=== PATIENT | female | born 1965 | race Caucasian/White ===

== ENCOUNTER → 2017-06-19 | Outpatient (CLI) | payer OTHER | END | disposition home or self-care (01) | LOC: KCIC MRI 15:15 | DX: M48.02 Spinal stenosis, cervical region (principal) | CPT/HCPCS: 72141 ==

== ENCOUNTER → 2018-03-12 | Outpatient (CLI) | payer OTHER ==
--- NOTE | 2018-03-12 09:55 | KCIC ---
MRI Lumbar Spine without contrast History: Low back pain, new bending injury, heard a pop 2 weeks ago Technique: Multiplanar, multi sequential noncontrast MR imaging was performed of the lumbar spine. Contrast: None Comparison: None Findings: Lumbar vertebral body stature is maintained. AP alignment is within normal limits. Conus terminates at L1-L2. There is no significant marrow edema. There is abnq-cs-oxhpprwr degenerative disc disease L5-S1 and minimally L4-5. There is a probable small more prominent vessel in the posterior central aspect of the thecal sac at the level of the sacrum. L3-L4: There is a negligible disc osteophyte complex and negligible posterior central protrusion without neural impingement or spinal stenosis. Neural foramina are adequate. There is mild facet degenerative change and buckling of the ligamentum flavum. L4-L5: There is a negligible posterior protrusion and tiny annular tear, no significant neural impingement or spinal stenosis. Neural foramina are adequate. L5-S1: There is very shallow posterior protrusion without significant impingement of the descending S1 nerve roots or spinal stenosis. Neural foramina are adequate. Impression: 1. There are negligible posterior protrusions at L3-4 to L5-S1 without significant neural impingement or spinal stenosis. There is ejez-da-hlebfbev degenerative disc disease L5-S1 and to a lesser degree at L4-5. Electronically signed by: Arden Lazcano MD (03/12/2018 9:52 AM) [facility]-KC[facility]2
== END | disposition home or self-care (01) ==
LOC: KCIC MRI 08:48
PROVIDERS: ATTEND Physician Assistant Medical
DX: M51.37 Other intervertebral disc degeneration, lumbosacral region (principal)
CPT/HCPCS: 72148

== ENCOUNTER → 2019-02-06 | Outpatient (CLI) | payer OTHER ==
--- NOTE | 2019-02-06 17:28 | KCIC ---
MRI Lumbar Spine without contrast History: Low back pain Technique: Multiplanar, multi sequential noncontrast MR imaging was performed of the lumbar spine. Comparison: March 12, 2018 Findings: Lumbar vertebral body stature is overall maintained. AP alignment is unchanged. There is bjqj-vu-ispwbzbq L5-S1 degenerative disc disease, minimally at L4-5. Conus terminates near L1-2. There is posterior annular tear L4-5. There is again what may represent a more prominent vessel in the posterior central aspect of the thecal sac at level of the sacrum. L2-3: Neural foramina and spinal canal are adequate. There is mild buckling of the ligamentum flavum. L3-L4: There is again very shallow posterior protrusion and disc osteophyte complex. Spinal canal and the neural foramina are adequate. There is minimal buckling of the ligamentum flavum and facet degenerative change. L4-L5: There is again negligible posterior protrusion. Spinal canal and neural foramina are overall adequate. L5-S1: There is again negligible disc osteophyte complex. Spinal canal is overall adequate. Neural foramina are adequate. Impression: 1. There is no new significant lumbar spinal stenosis or neural foramina compromise. There is asvx-cl-hgsoxsnv degenerative disc disease at L5-S1 and minimally at L4-5, very mild spondylosis. Electronically signed by: Arden Lazcano MD (02/06/2019 5:26 PM) [facility]-KC[facility]
== END | disposition home or self-care (01) ==
LOC: KCIC MRI 15:52
DX: M51.37 Other intervertebral disc degeneration, lumbosacral region (principal); M47.897 Other spondylosis, lumbosacral region; M25.78 Osteophyte, vertebrae
CPT/HCPCS: 72148

== ENCOUNTER 2020-06-01 20:03 | Emergency (ER) | payer OTHER ==
[~2020-06-01] VITALS: Ht 162.6 cm; Wt 81.0 kg
[2020-06-01 20:56] LABS: BASO # 0.1 x10^3/uL (0.0-0.2); BASO % 1 % (0-3); EOS # 0.2 x10^3/uL (0.0-0.7); EOS % 2 % (0-3); HEMATOCRIT 42.3 % (36.0-47.0); HEMOGLOBIN 14.4 g/dL (12.0-15.5); LYMPH # 1.9 x10^3/uL (1.0-4.8); LYMPH % 13 % (24-48); MEAN CORPUSCULAR HEMOGLOBIN 31 pg (25-35); MEAN CORPUSCULAR HGB CONC 34 g/dL (31-37); MEAN CORPUSCULAR VOLUME 90 fL (79-100); MONO # 1.8 x10^3/uL (0.0-1.1); MONO % 12 % (0-9); NEUT % 74 % (31-73); PLATELET COUNT 277 x10^3/uL (140-400); RED BLOOD COUNT 4.69 x10^6/uL (3.50-5.40); RED CELL DISTRIBUTION WIDTH 12.4 % (11.5-14.5); WHITE BLOOD COUNT 14.9 x10^3/uL (4.0-11.0)
--- NOTE | 2020-06-01 20:56 | PHYS DOC ---
General Adult EDM: Chief Complaint: ABDOMINAL PAIN HPI: HPI: 54 yo F PMH deafness, hyperhydrosis (resolved s/p endoscopic thoracic sympathetectomy), rheumatoid arthritis and gastric ulcer (1999), presents to the ED with complaints of epigastric abdominal pain that started yesterday morning around 5 AM that is also now localized in her right lower quadrant with associated fever and chills. Reports she had 2 episodes of runny bowel movements yesterday but had a normal brown bowel movement this morning. No relief with Tums but did feel relief with crackers 2 hours prior to ED arrival. Other with history of diverticulitis. Patient had a colonoscopy 4 years ago for routine screening that was negative. No known history of liver cirrhosis or daily alcohol use. No history of drug use. No history of active GI bleeding, has never required any blood transfusions. Use to take celecoxib daily -now takes enabrel for her RA. Initially declined automotive glass technician and was able to communicate via reading lips and writing on paper-later consents to automotive glass technician services that will be here in approximately 1 hour. Denies any associated nausea, vomiting, cough, chest pain, dyspnea, leg swelling, rash, back pain, dysuria, hematuria or flank pain. PSH-appendectomy in 2004, cholecystectomy in 2009 hysterectomy in 2016. Review of Systems: Review of Systems: Constitutional: Denies diaphoresis, dehydration Eyes: Denies change in visual acuity. [] HENT: Denies nasal congestion or sore throat. [] Respiratory: Denies cough or shortness of breath. [] Cardiovascular: Denies chest pain or edema. [] GI: Denies melena, hematochezia, hematemesis, nausea, vomiting : Denies dysuria or hematuria Musculoskeletal: Denies back pain or joint pain or CVA tenderness or lower extremity swelling Integument: Denies rash or crepitus Neurologic: Denies headache, focal weakness or sensory changes. [] Endocrine: Denies polyuria or polydipsia. [] Lymphatic: Denies swollen glands. [] Psychiatric: Denies depression or anxiety. [] Heart Score: Risk Factors: Risk Factors: DM, Current or recent (<one month) smoker, HTN, HLP, family history of CAD, obesity. Risk Scores: Score 0 - 3: 2.5% MACE over next 6 weeks - Discharge Home Score 4 - 6: 20.3% MACE over next 6 weeks - Admit for Clinical Observation Score 7 - 10: 72.7% MACE over next 6 weeks - Early Invasive Strategies Physical Exam: PE: Constitutional: Well developed, well nourished, no acute distress, non-toxic appearance, febrile HENT: Normocephalic, atraumatic, moist mucous membranes Eyes: EOMI, conjunctiva normal, no discharge. Neck: Normal range of motion, supple, Cardiovascular: S1/2 present, regular rhythm Lungs & Thorax: Speaking in full sentences, bilateral equal chest rise, no tachypnea or increased work of breathing Abdomen: soft, no Yang sign, no Rovsing sign, right lower quadrant tenderness with no rigidity or guarding Skin: Warm, dry, no erythema, no rash. [] Back: No tenderness, no CVA tenderness. [] Extremities: No tenderness, no cyanosis, no LE edema Neurologic: Alert and oriented X 3, normal motor function, normal sensory function, no focal deficits noted. [] Psychologic: Affect normal, judgement normal, mood normal. [] EKG: EKG: Sinus rhythm at 92 bpm, left axis deviation, prolonged QTC of 500, no T wave inversions, no ST elevations or ST depressions Radiology/Procedures: Radiology/Procedures: IMAGING REPORT Signed PATIENT: PANDA TSE ACCOUNT: [id number] : 1965 LOCATION: ER AGE: 54 SEX: F EXAM STATUS: REG ER ORD. PHYSICIAN: GERI BLUNT DO REASON: epigastric and rlq pain PROCEDURE: CT ABD PELV W/ IV CONTRST ONLY Exam: CT of abdomen and pelvis with contrast INDICATION: Epigastric and right lower quadrant pain TECHNIQUE: Sequential axial images through the abdomen and pelvis obtained following the administration of 60 mL of Isovue-370 IV contrast. Sagittal and coronal reformatted images were reconstructed from the axial data and reviewed. Comparisons: None FINDINGS: Heart size is normal. No pericardial. Strandy opacities at dependent portion lungs likely representing atelectasis. No pleural effusion. Diffuse hepatic steatosis. Spleen, pancreas, and adrenals are unremarkable. Gallbladder is surgically absent. No perinephric inflammation or hydronephrosis. No renal or ureteral calculi are identified. Bladder is decompressed not well evaluated. Uterus is absent. No abnormal adnexal mass. Postoperative changes noted at the ascending colon. Remainder large and small bowel are unremarkable. No free intra-abdominal air or fluid. No obstruction. Abdominal aorta has a normal course and caliber. Abdominal vasculature is patent. There are numerous enlarged right lower quadrant lymph nodes. No suspicious osseous lesions or acute fractures. IMPRESSION: Numerous enlarged the right lower quadrant with adjacent fat stranding. This is nonspecific and could relate to underlying colitis. There are postoperative changes at the colon. Correlate for malignancy history. Exposure: One or more of the following in the visualized dose reduction techniques were utilized for this examination: 1. Automated exposure control 2. Adjustment of the MA and/or KV according to patient size 3. Use of iterative of reconstructive technique Electronically signed by: Jose Murphy MD (06/01/2020 10:05 PM) [facility] DICTATED and SIGNED BY: JOSE MURPHY MD DATE: 06/01/20 [id number] 0 Course & Med Decision Making: Course & Med Decision Making Pertinent Labs and Imaging studies reviewed. (See chart for details) Concern for colitis +/- (U/a contaminated, > 40 wbcs and mod LE) UTI in the setting of right lower quadrant abdominal pain, meeting SIRS criteria given fever and leukocytosis of 14.9. No lactic acidosis or endorgan damage. Patient normotensive and well-appearing, low suspicion for shock. Will treat with antibiotics to cover both colitis and uti. Given concern for right lower quadrant lymphadenopathy will refer urgently to GI for colonoscopy. Has no family history of colon cancer. Patient with no nausea, vomiting or diarrhea. Will discharge home with strict ED return precautions were given for worsening pain, dehydration, intractable nausea, vomiting, diarrhea or worsening fever. Encouraged urgent outpatient follow-up with PMD and GI. Life-threatening processes were considered but are low suspicion at this time, given history, physical exam and ED workup. Pt was educated on all prescription medications and adverse effects. All patient's questions were answered and pt was stable at time of discharge. Life/limb-threatening differential includes but is not limited to, aortic dissection, aortic aneurysm, acute coronary syndrome, surgical abdomen (appendicitis, cholecystitis, ischemic bowel, strangulated hernia, etc), bowel obstruction or volvulus, bladder outlet obstruction, gastrointestinal bleeding, inflammatory bowel disease, peptic ulcer disease, ACS/CAD, sepsis, diverticular disease, ureterolithiasis, nephrolithiasis, ovarian torsion, ectopic , vaginal hemorrhage, or genitourinary infection. I spoken with the patient and her caregivers. I explained the patient's condition, diagnoses and treatment plan based on the information available to me at this time. I have answered the patient and her caregiver's questions and addressed any concerns. The patient and her caregivers have a good understanding of patient's diagnosis, condition and treatment plan as can be expected at this point. Vital signs have been stable. Patient's condition is stable and appropriate for discharge from the emergency department. Patient will pursue further outpatient evaluation with primary care physician or other designated or consulting physician as outlined in the discharge in structions. The patient and/or caregivers are agreeable to this plan of care and follow-up instructions have been explained in detail. The patient and/or caregivers have received these instructions in written form and have expressed an understanding of the discharge instructions. The patient and/or caregivers are aware that any significant change of condition or worsening of symptoms should prompt immediate return to this or the closest emergency department or call to [id number] Briseno Disclaimer: Finn Disclaimer: This electronic medical record was generated, in whole or in part, using a voice recognition dictation system. Departure Departure Impression: Primary Impression: RLQ abdominal pain Additional Impressions: Prolonged Q-T interval on ECG Colitis Abdominal lymphadenopathy UTI (urinary tract infection) Disposition: 01 DC HOME SELF CARE/HOMELESS Condition: STABLE Referrals: GERI SIERRA (PCP) in 1-2 weeks for re-evaluation Patient Instructions: Abdominal Pain, Colitis, Urinary Tract Infection Additional Instructions: FOLLOW UP WITH GASTROENTEROLOGY: Gastroenterology [facility] Address: [address] [place] [address] EMERGENCY DEPARTMENT GENERAL DISCHARGE INSTRUCTIONS Thank you for coming to [facility] Emergency Department (ED) today and trusting us with you care. We trust that you had a positive experience in our E mergency Department. If you wish to speak to the department management, you may call the Director at [phone]. YOUR FOLLOW UP INSTRUCTIONS ARE FOLLOWS: 1. Do you have a private Doctor? If you do not have a private doctor, please ask for a resource list of physicians or clinics that may be able to assist you with follow up care. 2. The Emergency Physicain has interpreted your x-rays. The X-Ray specialist will also review them. If there is a change in the findings, you will be notified in 48 hours when at all possible. 3. A lab test or culture has been done, your results will be reviewed and you will be notified if you need a change in treatment. ADDITIONAL INSTRUCTIONS AND INFORMATION: 1. Your care today has been supervised by a physician who is specially trained in emergency care. Many problems require more than one evaluation for a complete diagnosis a nd treatment. We recommend that you schedule your follow up appointment as recommended to ensure complete treatment of you illness or injury. If you are unable to obtain follow up care and continue to have a problem, or if your condition worsens, we recommend that you return to the ED. 2. We are not able to safely determine your condition over the phone nor are we able to give sound medical advice over the phone. For these safety reasons, if you call for medical advice we will ask you to come to the ED for further evaluation. 3. If you have any questions regarding these discharge instructions please call the ED at [phone]. SAFETY INFORMATION: In the interest of safety, wellness, and injury prevention; we encourage you to wear your sealbelt, if you smoke; quite smoking, and we encourage family to use a protective helmet for bicycling and other sporting events that present an increased risk for head injury. IF YOUR SYMPTOMS WORSEN OR NEW SYMPTOMS DEVELOP, OR YOU HAVE CONCERNS ABOUT YOUR CONDITION; OR IF YOUR CONDITION WORSENS WHILE YOU ARE WAITING FOR YOUR FOLLOW UP APPOINTMENT; EITHER CONTACT YOUR PRIMARY CARE DOCTOR, THE PHYSICIAN WHOSE NAME AND NUMBER YOU WERE GIVEN, OR RETURN TO THE ED IMMEDIATELY. Scripts Sulfamethoxazole/Trimethoprim (BACTRIM DS TABLET) 1 Each Tablet 1 TAB PO BID for infection for 7 Days, #14 TAB Prov: GERI BLUNT DO 06/01/20 GERI BLUNT DO Jun 01, 2020 20:56
[2020-06-01 20:57] LABS: BILIRUBIN,URINE NEGATIVE (NEG); CLARITY,URINE CLEAR; COLOR,URINE AMBER; NITRITE,URINE NEGATIVE (NEG); PROTEIN,URINE 30 mg/dL (NEG-TRACE)
[2020-06-01] MEDS ORDERED: IV NORMAL SALINE 1000ML BAG 1,000 ML IV SCH (21:00)
[2020-06-01] MEDS ORDERED: FAMOTIDINE 20 MG/2 ML VIAL IVP ONE (21:00)
[2020-06-01 21:03] LABS: BACTERIA,URINE FEW /HPF (0-FEW); BARBITURATES NEG (NEG); BENZODIAZEPINES NEG (NEG); CANNABINOIDS NEG (NEG); COCAINE NEG (NEG); METHADONE NEG (NEG); OPIATES NEG (NEG); PHENCYCLIDINE NEG (NEG); WBC,URINE >40 /HPF (0-4)
[2020-06-01 21:04] LABS: AMPHETAMINE/METHAMPHETAMINE NEG (NEG); RBC,URINE OCC /HPF (0-2)
[2020-06-01 21:06] LABS: CALCIUM 9.1 mg/dL (8.5-10.1); POTASSIUM 3.5 mmol/L (3.5-5.1)
[2020-06-01 21:18] VITALS: BP 133/63
[2020-06-01 21:20] LABS: ALBUMIN 3.3 g/dL (3.4-5.0); DIRECT BILIRUBIN 0.2 mg/dL (0.0-0.2); TOTAL PROTEIN 7.7 g/dL (6.4-8.2)
[2020-06-01] MEDS ORDERED: CONTRAST GIVEN. MC PRN (21:45)
[2020-06-01] MEDS ORDERED: IOHEXOL 300 MG/ML 100ML VIAL. IV ONE (22:00)
--- NOTE | 2020-06-01 22:08 | RAD ---
Exam: CT of abdomen and pelvis with contrast INDICATION: Epigastric and right lower quadrant pain TECHNIQUE: Sequential axial images through the abdomen and pelvis obtained following the administrati on of 60 mL of Isovue-370 IV contrast. Sagittal and coronal reformatted images were reconstructed fro m the axial data and reviewed. Comparisons: None FINDINGS: Heart size is normal. No pericardial. Strandy opacities at dependent portion lungs likely representin g atelectasis. No pleural effusion. Diffuse hepatic steatosis. Spleen, pancreas, and adrenals are unremarkable. Gallbladder is surgically absent. No perinephric inflammation or hydronephrosis. No renal or ureteral calculi are identified. Bladder is decompressed not well evaluated. Uterus is absent. No abnormal adnexal mass. Postoperative changes noted at the ascending colon. Remainder large and small bowel are unremarkable. No free intra-abdominal air or fluid. No obstruction. Abdominal aorta has a normal course and caliber. Abdominal vasculature is patent. There are numerous enlarged right lower quadrant lymph nodes. No suspicious osseous lesions or acute fractures. IMPRESSION: Numerous enlarged the right lower quadrant with adjacent fat stranding. This is nonspecific and could relate to underlying colitis. There are postoperative changes at the colon. Correlate for malignancy history. Exposure: One or more of the following in the visualized dose reduction techniques were utilized for this examination: 1. Automated exposure control 2. Adjustment of the MA and/or KV according to patient size 3. Use of iterative of reconstructive technique Electronically signed by: Jose Baldwin MD (06/01/2020 10:05 PM) [facility]
[2020-06-01] MEDS ORDERED: SULF1TAB24 PO (22:17)
[2020-06-01] MEDS ORDERED: SMZ/TMP 800/160MG TABLET. PO ONE (23:00)
[2020-06-02] MEDS ORDERED: TRIMETH IV SCH (06:00)
[2020-06-02] MEDS ORDERED: DEXTROSE IV SCH (06:00)
[2020-06-02] MEDS ORDERED: SULFAMETH IV SCH (06:00)
== END 2020-06-01 22:38 | disposition home or self-care (01) ==
LOC: ER 20:03
DX: N39.0 Urinary tract infection, site not specified (principal); K52.9 Noninfective gastroenteritis and colitis, unspecified; R59.0 Localized enlarged lymph nodes; I45.81 Long QT syndrome
CPT/HCPCS: 36415; 74177; 80048; 80076; 80307; 81001; 82550; 83605; 83690; 83735; 84484; 85025; 87040; 87086; 96361; 96374; 99285; J3490; J7030; Q9967